=== PATIENT | female | born 1940 | race American Indian/Alaskan Native ===

== ENCOUNTER 2016-05-19 12:10 | Emergency (ER) | payer OTHER, MEDICARE ==
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
[2016-05-19 17:19] VITALS: BP 182/82
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
== END 2016-05-19 18:30 | disposition home or self-care (01) ==
LOC: ED 12:10
DX: J01.21 Acute recurrent ethmoidal sinusitis (principal); M54.5 Low back pain; V89.2XXA Person injured in unspecified motor-vehicle accident, traffic, initial encounter; Y93.89 Activity, other specified; Y99.9 Unspecified external cause status; Y92.410 Unspecified street and highway as the place of occurrence of the external cause
CPT/HCPCS: 70450; 72125

== ENCOUNTER 2019-01-24 07:18 | Outpatient (CLI) | payer MEDICARE ==
--- NOTE | 2019-01-24 11:39 | Mammography Report ---
DIGITAL SCREENING MAMMOGRAM WITH CAD, 01/24/2019 INDICATION: Routine screening mammography. TECHNIQUE: Digital bilateral 2D mammography was obtained in the craniocaudal and mediolateral obliq ue projections. This examination was interpreted with the benefit of Computer-Aided Detection analysi s. COMPARISON: 01/23/2018 and 01/20/2017 FINDINGS: Breast Density: The breasts are heterogeneously dense, which may obscure small masses. There is no evidence of dominant mass, suspicious calcifications or architectural distortion in eithe r breast. IMPRESSION: No mammographic evidence of malignancy. Follow up recommendation: Routine yearly BI-RADS Category 1: Negative. A "normal" or negative report should not discourage follow up or biopsy of a clinically significant f inding. A written summary of these findings will be mailed to the patient. The patient will be entered into a mammography reporting system which will generate a reminder letter for the patient's next appointmen t at the appropriate interval. The [employer] recommends yearly mammograms starting at age 40 and continuing as l sylvia as a woman is in good health. Breast MRI is recommended for women with an approximate 20-25% or greater lifetime risk of breast cancer, including women with a strong family history of breast or ova kristin cancer or who have been treated for Hodgkin's disease. Signer Name: Salas Renner MD Signed: 01/24/2019 11:35 AM Workstation Name: [id number]
== END 2019-01-24 07:19 | disposition home or self-care (01) ==
LOC: MAMMO 07:18
PROVIDERS: ATTEND Internal Medicine
DX: Z12.31 Encounter for screening mammogram for malignant neoplasm of breast (principal)
CPT/HCPCS: 77067